=== PATIENT | female | born 1960 | race African-American/Black ===

== ENCOUNTER 2017-02-14 10:59 | Inpatient (IN) | payer OTHER ==
[2017-02-14] VITALS (8 sets, daily range): BP systolic 111–134; BP diastolic 60–76
[~2017-02-14] VITALS: Ht 154.9 cm; Wt 69.4 kg
--- NOTE | ~2017-02-14 | P ---
[facility] [place] [address] PROCEDURE REPORT Name: CONNIE DOWLING Room #: 212-P [facility] IN M.R.#: [id number] Admission: 02/14/17 Attend Phys: Yary Rodriguez Discharge: 02/23/17 Date of : 64 Report #: [id number] THIS REPORT FOR: //name// CC: LAILA Rodriguez DATE OF SERVICE: 02/22/2017 PROCEDURE PERFORMED: Upper endoscopy with small bowel enteroscopy and bleeding control. HISTORY OF PRESENT ILLNESS: The patient is a 56-year-old female who was admitted on 02/14/2017 with a significant anemia with hemoglobin of 5.6. She has been transfused. She underwent an EGD and colonoscopy by my partner, Dr. Baron. Distal esophagitis with Schatzki's ring was noted. Erosive antritis was noted. Duodenum otherwise normal. Colonoscopy was performed, which was normal. She then underwent an M2 capsule endoscopy yesterday. This was read this morning. There was evidence of several AVMs and active oozing in one portion what appeared to be within the distal duodenum or jejunum. Therefore, plan is for enteroscopy. DESCRIPTION OF PROCEDURE: The risks and benefits of the procedure were explained to the patient, those risks including but not limited to bleeding, perforation, the risk of sedation. She understood these risks and gave informed consent. Sedation was given using propofol and ketamine per anesthesia. Next, using a [employer] small bowel enteroscope, the scope was placed in the patient's mouth and advanced under direct vision through the esophagus, stomach, duodenum and well into the jejunum. I advanced the scope as far as possible. At one point, it was approximately 190-200 cm. A total of three nonbleeding AVMs were noted. All 3 were cauterized with a bipolar cautery. No bleeding was noted after cauterization. I was not able to advance the scope any further again at approximately 200 cm. At this point, the scope was slowly withdrawn. No further AVMs were noted. No bleeding. The gastric mucosa did show some mild gastritis, no bleeding. The esophagus was essentially normal. The scope was then withdrawn and the procedure terminated. The patient tolerated the procedure well. IMPRESSION: 1. 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 2. Mild gastritis. RECOMMENDATIONS: Overall difficult case as capsule from yesterday recording showed active oozing within the jejunum. There was no active bleeding today. It is unclear if all AVMs were able to be reached on enteroscopy today. There [address] [address] PROCEDURE REPORT Name: CONNIE DOWLING Room #: 212-P [facility] IN M.R.#: [id number] Admission: 02/14/17 Attend Phys: Yary Rordiguez Discharge: 02/23/17 Date of : 64 Report #: [id number] is a chance she could have further AVMs distally and if so, may need a double balloon enteroscopy, which is done at a different facility. Her hemoglobin is currently stable. Would recommend continuing to monitor hemoglobin. If there is a trend down, may need to consider double balloon enteroscopy at that point. The patient is also in need of a coronary artery bypass surgery in the near future as well. Thank you for allowing me to participate in her care. <ELECTRONICALLY SIGNED> By: Zaheer Grijalva MD 02/25/17 0818 1425 1705 Zaheer Grijalva MD /nt
--- NOTE | ~2017-02-14 | P ---
[facility] [place] [address] [place] [address] PROCEDURE REPORT Name: CONNIE DOWLING Room #: 356-P ADM IN M.R.#: [id number] Admission: 02/14/17 Attend Phys: Yary Rodriguez Discharge: Date of : 64 Report #: [id number] THIS REPORT FOR: //name// CC: TI Peters DO Yary Rodriguez MD DATE OF SERVICE: 02/16/2017 PROCEDURE: EGD with biopsies. A patient of Dr. Rodriguez and Dr. Ti Peters. INDICATION FOR PROCEDURE: The patient has heme negative stools, but is iron deficient and dropped her hemoglobin down to a very low level of 5.6. She has been transfused up to 9.0 now. The etiology of this iron deficiency anemia is unclear. So EGD and colonoscopy are being performed. Informed consent for this procedure was obtained prior to the administration of any medication. The risks of the procedure which include bleeding, perforation, infection, complications of sedation and the possibility I could miss something have been explained to the patient and she has indicated her consent by signing. DESCRIPTION OF PROCEDURE: Propofol was slowly titrated before and during this procedure for patient comfort by the anesthesia service. The [employer] upper videoscope was introduced through the upper esophageal sphincter and advanced under direct visualization to the descending duodenum. Findings are noted on withdrawal of the scope. The duodenal mucosa appears normal throughout its entirety. Pylorus, normal mucosa. Antrum, erosive antritis is noted. It should be also noted that the mucosa is atrophic in appearance. Biopsies were obtained x 2 from the antrum for Helicobacter pylori evaluation and for evaluation of other causes of erosive gastritis. Body, nodular mucosa is noted. There is also atrophic gastric mucosa appearance to the lining of the stomach. Cardia and fundus, normal mucosa. Retroflex view did not reveal any hiatal hernia. The scope was withdrawn into the esophagus. The Z-line is appropriately located at the top of the gastric folds. There is erythema of the distal esophagus. A biopsy was obtained x 1 for histopathology. The remainder of the esophageal mucosa appears normal. The scope was withdrawn. She was turned for colonoscopy. IMPRESSION: 1. Distal esophagitis with a Schatzki ring that has not been causing any symptoms. I did not dilate it. 2. Erosive antritis, biopsies pending. 3. Atrophic nodular appearing body of the stomach, possible H. pylori [address] [address] PROCEDURE REPORT Name: CONNIE DOWLING Room #: 356-P [facility] IN M.R.#: [id number] Admission: 02/14/17 Attend Phys: Yary Rodriguez Discharge: Date of : 64 Report #: [id number] infection. Biopsies obtained to exclude this. 4. Normal duodenum. RECOMMENDATIONS: Are to await the biopsy results and we will proceed with colonoscopy at this time. Thank you very much once again for allowing me to participate in her care. <ELECTRONICALLY SIGNED> By: Ann-Marie Baron DO 02/17/17 2245 1302 2301 Ann-Marie Baron, /nt
--- NOTE | ~2017-02-14 | EKG ---
[address] [place] [address] ELECTROCARDIOGRAM REPORT Name: CONNIE DOWLING Room #: 356-P ADM IN M.R.#: [id number] Admission: 02/14/17 Attend Phys: Yary Rodriguez Discharge: Date of : 64 Report #: [id number] THIS REPORT FOR: //name// [facility] ED Test Date: 2017-02-14 Test Time: 11:17:57 Pat Name: CONNIE DOWLING Department: Room: 356 Gender: F Social Media Project Manager: MAURA : 1960 Requested By: Renny Kinney Order Number: [id number] MD: Terence Caldwell Measurements Intervals [place] Rate: 93 P: 66 WA: 169 QRS: 52 QRSD: 90 T: -16 QT: 356 QTc: 443 Interpretive Statements Sinus rhythm Ventricular premature complex Probable left atrial enlargement Nonspecific repol abnormality, diffuse leads Compared to ECG 09/01/2011 20:07:41 Ventricular premature complex(es) now present Early repolarization now present Sinus tachycardia no longer present Electronically Signed On 02-14-2017 17:02:14 [employer] WORK[employer] by Terence Caldwell [email or web address] <ELECTRONICALLY SIGNED> By: Terence Caldwell MD 02/14/17 1702 1117 1117 Terence Caldwell MD /EPI
--- NOTE | ~2017-02-14 | CATHLAB ---
[facility] [address] [place] [address] INVASIVE PROCEDURE REPORT Name: CONNIE DOWLING Room #: 212-P ADM IN M.R.#: [id number] Admission: 02/14/17 Attend Phys: Yary Holbrook Discharge: Date of : 64 Date of Service: 02/18/17 1310 Report #: [id number] THIS REPORT FOR: //name// APPROVED REPORT Patient Details Patient Status: In-Patient Room #: The patient is a 56 year-old female Event Personnel Syd Reyez Revolving Field Assembler, Torrey Mccann RN, Chi Srinivasan, Liu Lopez RN Monitor Procedures Performed Left Heart Cath w/or w/o Coronaries [id number] [facility] Indication CHF Current Status: , Non-STEMI , Dyspnea Risk Factors Hypercholesterolemia, Hypertension Procedure Narrative The Right Groin^ was infiltrated with 1% Lidocaine subcutaneous anesthesia. A PINNACLE 5FR Sheath #[id number] sheath was inserted into the RFA^. Coronary angiography was performed using coronary diagnostic catheters. The right coronary system was accessed and visualized with a JR4 catheter. The left coronary system was accessed and visualized with a JL4 catheter. The left ventricle was accessed and visualized with a PIGTAIL catheter. Left ventricular/Aortic Valve gradient assessed via catheter pullback. Closure device was deployed with a 5 Fr MYNXGRIP 5F #[id number]. The patient tolerated the procedure well and there were no complications associated with the procedure. Intraoperative Conscious Sedation Sedation start time: 8.15 Case end Time: 8.34 Fentanyl 25.0 mcg Versed 1.5 mg Fluoro Time: 2.17 minutes Dose: DAP 3619.80 cGycm2 501 mGy Contrast Type and Amount: Omnipaque 120 ml Coronary Angiography The patient's coronary anatomy is co- dominant. [facility] [address] [place] [place] [address] INVASIVE PROCEDURE REPORT Name: CONNIE DOWLING Room #: 212-P [facility] IN M.R.#: [id number] Admission: 02/14/17 Attend Phys: Yary Holbrook Discharge: Date of : 64 Date of Service: 02/18/17 1310 Report #: [id number] Diagnostic Cath Left Main Large-caliber vessel, with mild disease at the distal segment. LAD Heavily calcified in the proximal segment. There is a severe stenosis in the mid segment, 80%. Diagonal 1 Small-caliber vessel, mild disease proximally. Circumflex Codominant vessel with a severe stenosis in the proximal segment, at least 90%. OM1 Severe stenosis, 70% in the proximal segment. OM2 Severe stenosis, 70% in the proximal segment. Right Coronary Severe stenosis in the mid segment, 80%. R PDA Small-caliber vessel, no flow limiting lesions. Left Ventriculography The left ventricle is mildly dilated in size with decreased contractility. The left ventricular ejection fraction is estimated to be 35%. Hypokinesis of the anteroapical region. Hemodynamics The aortic pressure is 161/86 mmHg with a mean of 80 mmHg. The left ventricular pressure is 148/22 mmHg with a mean of mmHg. The left ventricular end diastolic pressure is 35 mmHg. Conclusion 1. Severe, multivessel coronary artery disease. 2. Moderately severe ischemic cardiomyopathy. 3. Recommend CV consultation. <ELECTRONICALLY SIGNED> By: Syd Reyez MD 02/18/171309 09 09 Syd Reyez MD /INF
--- NOTE | ~2017-02-14 | 2DMMODE ---
[facility] [address] [place] [address] 2 D/M-MODE ECHOCARDIOGRAM Name: CONNIE DOWLING Room #: 356-P ADM IN M.R.#: [id number] Admission: 02/14/17 Attend Phys: Yary Holbrook Discharge: Date of : 64 Date of Service: 02/15/17 0934 Report #: [id number] THIS REPORT FOR: //name// APPROVED REPORT Study performed: 02/15/2017 08:08:59 EXAM: Comprehensive 2D, Doppler, and color-flow Echocardiogram Patient Location: Bedside Room #: 356 Status: routine BSA: 1.70 HR: 86 bpm BP: 124/82 mmHg Rhythm: NSR Other Information Study Quality: Good Indications Dyspnea Elevated Troponin ST Depression 2D Dimensions RVDd: 32.24 mm LVEF(%): 33.04 (>50%) IVSd: 10.94 (7-11mm) LVOT Diam: 21.13 (18-24mm) LVDd: 45.73 mm PWd: 10.94 (7-11mm) Ascending Ao: 28.54 (22-36mm) LVDs: 38.59 (25-40mm) Aortic Root: 27.55 mm IVC: 24.00 mm Gutierrez's LVEF: 33.04 % Volumes Left Atrial Volume (Systole) Single Plane 4CH: 67.33 mL Single Plane 2CH: 89.24 mL LA ESV Index: 50.00 mL/m2 Aortic Valve AoV Peak Zaid.: 1.08 m/s AO Peak Gr.: 4.66 mmHg LVOT Max P.88 mmHg LVOT Max V: 0.85 m/s NANDO Vmax: 2.76 cm2 Mitral Valve [facility] [address] [place] [address] 2 D/M-MODE ECHOCARDIOGRAM Name: CONNIE DOWLING Room #: 356-P [facility] IN M.R.#: [id number] Admission: 02/14/17 Attend Phys: Yary Holbrook Discharge: Date of : 64 Date of Service: 02/15/17 0934 Report #: [id number] E/A Ratio: 1.3 MV Decel. Time: 133.99 ms MV E Max Zaid.: 1.36 m/s MV A Zaid.: 1.05 m/s MV PHT: 38.86 ms IVRT: 55.36 ms Pulmonary Valve PV Peak Zaid.: 1.08 m/s PV Peak Gr.: 4.67 mmHg AK End Vmax: 2.17 m/s Pulmonary Vein P Vein S: 0.35 m/s P Vein A: 0.29 m/s P Vein D: 0.53 m/s P Vein A Dur.: 86.5 msec P Vein S/D Ratio: 0.66 Tricuspid Valve TR Peak Zaid.: 3.07 m/s RAP Estimate: 15.00 mmHg TR Peak Gr.: 37.71 mmHg PA Pressure: 53.00 mmHg Left Ventricle The left ventricle is normal size. Hypokinesis of the septum and anterior michel. There is normal left ventricular wall thickness. Left ventricular systolic function is moderately decreased. LVEF is 35-40%. The diastolic function is abnormal. Findings suggest the left atrial pressure is elevated. Right Ventricle The right ventricle is normal size. The right ventricular systolic function is normal. Atria Left atrium is dilated. Right atrium is dilated. Aortic Valve The aortic valve is normal in structure. No aortic regurgitation is present. There is no aortic valvular stenosis. Mitral Valve Mild mitral annular calcification. Moderate mitral regurgitation. No evidence of mitral valve stenosis. Tricuspid Valve The tricuspid valve is normal in structure. Mild to moderate tricuspid regurgitation. Estimated PAP 50mmHg. [facility] [address] [place] [address] 2 D/M-MODE ECHOCARDIOGRAM Name: CONNIE DOWLING Room #: 356-P [facility] IN M.R.#: [id number] Admission: 02/14/17 Attend Phys: Yary Holbrook Discharge: Date of : 64 Date of Service: 02/15/17 0934 Report #: [id number] Pulmonic Valve The pulmonary valve is normal in structure. Mild pulmonic regurgitation. Great Vessels The aortic root is normal in size. The ascending aorta is normal in size. IVC is dilated and collapses <50% with inspiration. Pericardium There is no pericardial effusion. <Conclusion> Moderate left ventricular dysfunction. LVEF is 35-40%. Hypokinesis of the septum and anterior michel. Both atria are mildly dilated. The aortic valve is normal in structure. No aortic valvular stenosis or insufficiency. Mild mitral annular calcification. Moderate mitral regurgitation. Pulmonary artery pressure of 50mmHg There is no pericardial effusion. <ELECTRONICALLY SIGNED> By: Isra Roberts MD, [facility] 02/15/17933 3 3 Isra Roberts MD, FACC /INF
--- NOTE | ~2017-02-14 | S ---
[facility] [place] [address] [place] [address] SURGICAL PATH RPT PROCEDURE Name: CONNIE DOWLING Room #: 356-P ADM IN M.R.#: [id number] Admission: 02/14/17 Date of : 64 Discharge: Report #: [id number] Path Case #: [id number] PATHOLOGY REPORT COLLECTION DATE: 02/16/2017 RECEIVED DATE: 02/16/2017 SUBMITTING PHYS: Dr. Ann-Marie Baron OTHER PHYS: Dr. Yary Rodriguez SPECIMEN(S) RECEIVED: A.Bx antrum stomach R/O H pylori B.Bx esophagus to evaluate esophagitis * * * * * * * * * * * * FINAL DIAGNOSIS: A. Gastric mucosa, antrum stomach rule out H. pylori, endoscopic biopsy: - Mild chronic active gastritis. - Negative for intestinal metaplasia or atrophy. - Negative for Helicobacter pylori. B. Squamous mucosa, esophagitis, endoscopic biopsy: - Mild esophagitis showing changes compatible with reflux esophagitis. - Negative for intestinal metaplasia or dysplasia. COMMENT: Helicobacter pylori immunohistochemical stain performed on block A1 - negative. (IUV:pit; 02/17/2017) PATHOLOGIST: Maria Vazquez M.D. REPORT ELECTRONICALLY SIGNED BY: Maria Vazquez M.D. DATE/TIME: 02/17/2017 15:16 * * * * * * * * * * * * GROSS PATHOLOGY: A. Received in formalin labeled "Connie Dowling, BX antrum stomach," are 2 segments of martin soft tissue measuring 1.2 x 0.4 x 0.3 cm in aggregate dimensions and ranging from 0.5 to 0.6 cm in maximum dimension. The specimen is submitted entirely in cassette A1. B. Received in formalin labeled "Connie Dowling, BX esophagitis," and additionally labeled on the requisition as "esophagus to evaluate esophagitis," is a segment of martin soft tissue measuring 0.5 cm in maximum dimension. The specimen is submitted entirely in cassette B1. (TSD; 02/16/2017) [address] [address] SURGICAL PATH RPT PROCEDURE Name: OCNNIE DOWLING Room #: 356-P ADM IN M.R.#: [id number] Admission: 02/14/17 Date of : 64 Discharge: Report #: [id number] Path Case #: [id number] CLINICAL HISTORY: Pre-OP DX: Anemia, GI bleed Post-OP DX: Diffuse nodular gastritis, esophagitis INITIAL CPT CODE(S): A; 41034, 46315 B; 93166 Professional services performed by [facility] at [address], [place] [address] Technical services performed by [facility] at [address] [place] [address], [address], [place] [address]. Ti Peters [facility] [address] [address] PHONE: [phone] DIRECTOR: Chai Gatica M.D. * * * END OF REPORT * * *
--- NOTE | ~2017-02-14 | P ---
[facility] [place] [address] [place] [address] PROCEDURE REPORT Name: CONNIE DOWLING Room #: 356-P [facility] IN M.R.#: [id number] Admission: 02/14/17 Attend Phys: Yary Rodriguez Discharge: Date of : 64 Report #: [id number] THIS REPORT FOR: //name// CC: LAILA Gtz MD DATE OF SERVICE: 02/16/2017 PROCEDURE: This is a diagnostic colonoscopy. Informed consent for this procedure was obtained prior to the administration of any medication. The risks of the procedure which include bleeding, perforation, infection, complications of sedation and the possibility I could miss something have been explained to the patient and she has indicated her consent by signing. DESCRIPTION OF PROCEDURE: Propofol was slowly titrated before and during this procedure and the EGD that preceded it. The CVRxn colonoscope was introduced through the anal sphincter and advanced under direct visualization to the terminal ileum. Findings are noted on withdrawal of the scope. The terminal ileal mucosa appears normal. Cecum, normal mucosa. Ascending colon, normal mucosa. Hepatic flexure, normal mucosa. Transverse colon, normal mucosa. Splenic flexure, normal mucosa. Descending colon, normal mucosa. Sigmoid colon, normal mucosa. Rectum, normal mucosa. Retroflex view did not reveal any abnormalities. The scope was withdrawn. The patient went to the recovery area in stable condition. She tolerated the procedure well. IMPRESSION: Normal colonoscopic exam to the terminal ileum. The etiology of the patient's iron deficiency anemia may be from the erosive antritis. I think she has been taking some nonsteroidals. She would benefit from ongoing H2 receptor antagonist therapy if she is going to continue taking these medications. If she has a heme-positive stool, I would recommend that she have an M2 capsule study done to be certain there is not something in her small intestine that might be causing her iron deficiency anemia. Thank you very much once again for allowing me to participate in her care, Dr. Rodriguez and Dr. Peters. <ELECTRONICALLY SIGNED> By: Ann-Marie Baron DO 02/17/17 2245 1302 0411 Ann-Marie Baron DO /nt
[~2017-02-14 10:59] MED LIST: AUGMENTIN 875875 MG PO; BACTRIM DS TAB1 EACH PO; CIPROFLOXA400 MG/202 IVPB; HYDROCODON-ACE1 EAC7 PO; IBUPROFEN 400400 M1 PO; NOHOMEMEDICATIONS; SOF-LAX100 MG PO; VICODIN 5-5001 EACH PO
[2017-02-14 11:32] LABS: MCH 23.3 pg (26.0-34.0); MCHC 33.2 g/dL (28.0-37.0); MCV 70.3 fL (80.0-100.0); PLATELET COUNT 451 thou/uL (150-400); RBC 2.41 mil/uL (4.20-5.00); RDW 19.3 % (10.5-14.5); WBC 8.9 thou/uL (4.0-11.0)
[2017-02-14 11:33] LABS: MANUAL DIFF YES
[2017-02-14 11:35] LABS: HEMATOCRIT 16.9 % (37.0-47.0); HEMOGLOBIN 5.6 gm/dL (12.0-15.0)
[2017-02-14 11:37] LABS: CALCIUM 9.4 mg/dL (8.5-10.1); CREATININE 0.9 mg/dL (0.6-1.0); POTASSIUM 4.3 mmol/L (3.5-5.1)
[2017-02-14 11:46] LABS: TOTAL BILIRUBIN 0.6 mg/dL (<0.1-1.0); TOTAL PROTEIN 7.9 g/dL (6.4-8.2); TROPONIN-I 0.08 ng/mL (<0.06)
[2017-02-14 12:39] LABS: ABSOLUTE NEUTROPHILS 7.8 thou/uL (1.4-8.2); ANISOCYTOSIS 1+; HYPOCHROMASIA 2+; MICROCYTES 2+; PLATELET ESTIMATE INCREASED; TOTAL CELL COUNT 100
[2017-02-14 12:40] LABS: % SATURATION 3 % (20-39); IRON 15 ug/dL (50-170); TIBC 430 ug/dL (250-450); UIBC 415 ug/dL
[2017-02-14 12:50] LABS: ABSOLUTE RETIC COUNT 0.0753 10^6/uL; OBSERVED RETIC COUNT 3.12 % (0.6-2.6)
[2017-02-14 12:52] LABS: CHOLESTEROL 123 mg/dL (<200); HDL CHOLESTEROL 58 mg/dL (>40); LDL CHOLESTEROL 57 mg/dL (<100); TC:HDL 2.1 Ratio (Not establshd); TRIGLYCERIDE 43 mg/dL (<150); VLDL 9 mg/dL (<40)
[2017-02-15] VITALS (11 sets, daily range): BP systolic 104–142; BP diastolic 58–93
[2017-02-15 05:03] LABS: MCV 72.3 fL (80.0-100.0); WBC 7.7 thou/uL (4.0-11.0)
[2017-02-15 05:04] LABS: MCH 22.9 pg (26.0-34.0); MCHC 31.7 g/dL (28.0-37.0); RBC 2.56 mil/uL (4.20-5.00); RDW 20.1 % (10.5-14.5)
[2017-02-15 05:10] LABS: HEMOGLOBIN 5.9 gm/dL (12.0-15.0)
[2017-02-15 05:11] LABS: HEMATOCRIT 18.5 % (37.0-47.0)
[2017-02-15 05:18] LABS: ALBUMIN 2.6 g/dL (3.4-5.0); CALCIUM 8.5 mg/dL (8.5-10.1); CREATININE 0.8 mg/dL (0.6-1.0); POTASSIUM 3.9 mmol/L (3.5-5.1); TROPONIN-I 0.13 ng/mL (<0.06)
[2017-02-15 22:14] LABS: HEMATOCRIT 26.1 % (37.0-47.0); HEMOGLOBIN 8.4 gm/dL (12.0-15.0)
[2017-02-16 03:58] VITALS: BP 112/69
[2017-02-16 06:50] LABS: HEMATOCRIT 27.9 % (37.0-47.0); MCH 23.7 pg (26.0-34.0); MCHC 32.3 g/dL (28.0-37.0); MCV 73.6 fL (80.0-100.0); RBC 3.79 mil/uL (4.20-5.00); RDW 20.4 % (10.5-14.5); WBC 9.8 thou/uL (4.0-11.0)
[2017-02-16 07:00] LABS: ALBUMIN 2.9 g/dL (3.4-5.0); CALCIUM 9.3 mg/dL (8.5-10.1); CREATININE 0.7 mg/dL (0.6-1.0); PHOSPHORUS 3.6 mg/dL (2.5-4.9); POTASSIUM 3.6 mmol/L (3.5-5.1)
[2017-02-16 08:14] VITALS: BP 126/68
[2017-02-16 13:45] VITALS: BP 115/71
[2017-02-16 14:09] LABS: GLYCOHEMOGLOBIN (HGB A1C) 5.1 % (4.8-5.6)
[2017-02-16 19:49] VITALS: BP 110/55
[2017-02-17 04:06] VITALS: BP 125/62
[2017-02-17 05:57] LABS: HEMATOCRIT 30.4 % (37.0-47.0); HEMOGLOBIN 9.8 gm/dL (12.0-15.0); MCH 24.1 pg (26.0-34.0); MCHC 32.2 g/dL (28.0-37.0); MCV 74.8 fL (80.0-100.0); RBC 4.06 mil/uL (4.20-5.00); RDW 20.8 % (10.5-14.5); WBC 8.7 thou/uL (4.0-11.0)
[2017-02-17 06:04] LABS: ALBUMIN 2.8 g/dL (3.4-5.0); CALCIUM 8.6 mg/dL (8.5-10.1); CREATININE 0.9 mg/dL (0.6-1.0); PHOSPHORUS 3.9 mg/dL (2.5-4.9); POTASSIUM 3.1 mmol/L (3.5-5.1)
[2017-02-17 07:29] VITALS: BP 133/69
[2017-02-17 11:35] VITALS: BP 106/58
[2017-02-17 15:25] VITALS: BP 129/48
[2017-02-17 16:30] LABS: MAGNESIUM 1.4 mg/dL (1.8-2.4); POTASSIUM 4.2 mmol/L (3.5-5.1)
[2017-02-17 18:50] VITALS: BP 127/69
[2017-02-18] VITALS (9 sets, daily range): BP systolic 121–134; BP diastolic 65–79
[2017-02-18 06:45] LABS: HEMATOCRIT 30.1 % (37.0-47.0); HEMOGLOBIN 9.6 gm/dL (12.0-15.0); MCH 24.1 pg (26.0-34.0); MCV 75.3 fL (80.0-100.0); RBC 3.99 mil/uL (4.20-5.00); RDW 21.9 % (10.5-14.5); WBC 8.6 thou/uL (4.0-11.0)
[2017-02-18 06:57] LABS: CALCIUM 9.2 mg/dL (8.5-10.1); CREATININE 0.8 mg/dL (0.6-1.0); MAGNESIUM 1.5 mg/dL (1.8-2.4); POTASSIUM 3.6 mmol/L (3.5-5.1)
[2017-02-18 15:01] LABS: URINE BILIRUBIN NEGATIVE (Negative); URINE BLOOD 1+ (Negative); URINE COLOR YELLOW; URINE GLUCOSE-RANDOM* NEGATIVE (Negative); URINE KETONES NEGATIVE (Negative); URINE PROTEIN (DIPSTICK) NEGATIVE (Negative); URINE SPECIFIC GRAVITY <= 1.005 (1.003-1.035); URINE UROBILINOGEN 0.2 E.U./dl (0.2-1.0)
[2017-02-18 15:02] LABS: URINE LEUKOCYTES-REFLEX 1+ (Negative)
[2017-02-18 15:14] LABS: SQUAMOUS 0-3 Few /LPF (0-3); URINE RBC 0-2 Rare /HPF (0-2); URINE WBC-REFLEX 0-5 Rare /HPF (0-5)
[2017-02-18 15:15] LABS: CASTS None Seen /LPF (None Seen); CRYSTALS None Seen /LPF (None Seen)
[2017-02-19 04:56] LABS: MCH 23.6 pg (26.0-34.0); MCHC 31.4 g/dL (28.0-37.0); MCV 75.4 fL (80.0-100.0); RBC 4.24 mil/uL (4.20-5.00); WBC 9.2 thou/uL (4.0-11.0)
[2017-02-19 05:07] LABS: CREATININE 0.9 mg/dL (0.6-1.0); MAGNESIUM 1.8 mg/dL (1.8-2.4); POTASSIUM 3.3 mmol/L (3.5-5.1)
[2017-02-19 05:08] VITALS: BP 141/71
[2017-02-19 08:00] VITALS: BP 125/82
[2017-02-19 12:00] VITALS: BP 115/70
[2017-02-19 16:00] VITALS: BP 137/74
[2017-02-19 19:52] VITALS: BP 132/83
[2017-02-20 02:07] LABS: HEMATOCRIT 31.8 % (37.0-47.0); HEMOGLOBIN 10.1 gm/dL (12.0-15.0); MCH 23.7 pg (26.0-34.0); MCHC 31.6 g/dL (28.0-37.0); MCV 75.1 fL (80.0-100.0); RBC 4.24 mil/uL (4.20-5.00); RDW 23.7 % (10.5-14.5)
[2017-02-20 02:19] LABS: CALCIUM 8.7 mg/dL (8.5-10.1); CREATININE 0.7 mg/dL (0.6-1.0); MAGNESIUM 1.7 mg/dL (1.8-2.4); POTASSIUM 3.3 mmol/L (3.5-5.1)
[2017-02-20 04:19] VITALS: BP 122/77
[2017-02-20 09:20] VITALS: BP 105/71
[2017-02-20 12:55] VITALS: BP 112/69
[2017-02-20 16:30] VITALS: BP 123/75
[2017-02-20 17:07] LABS: MAGNESIUM 1.8 mg/dL (1.8-2.4)
[2017-02-20 17:10] LABS: POTASSIUM 4.5 mmol/L (3.5-5.1)
[2017-02-20 19:47] VITALS: BP 136/76
[2017-02-21 03:37] VITALS: BP 115/69
[2017-02-21 04:12] LABS: HEMATOCRIT 32.1 % (37.0-47.0); HEMOGLOBIN 10.2 gm/dL (12.0-15.0); MCH 24.1 pg (26.0-34.0); MCHC 31.7 g/dL (28.0-37.0); MCV 76.1 fL (80.0-100.0); RBC 4.22 mil/uL (4.20-5.00); RDW 24.5 % (10.5-14.5); WBC 10.2 thou/uL (4.0-11.0)
[2017-02-21 04:16] LABS: CALCIUM 9.1 mg/dL (8.5-10.1); CREATININE 0.9 mg/dL (0.6-1.0); MAGNESIUM 1.8 mg/dL (1.8-2.4); POTASSIUM 3.7 mmol/L (3.5-5.1)
[2017-02-21 07:07] LABS: URINE BILIRUBIN NEGATIVE (Negative); URINE BLOOD 3+ (Negative); URINE COLOR YELLOW; URINE GLUCOSE-RANDOM* NEGATIVE (Negative); URINE KETONES NEGATIVE (Negative); URINE LEUKOCYTES-REFLEX 3+ (Negative); URINE PROTEIN (DIPSTICK) 2+ (Negative); URINE SPECIFIC GRAVITY <= 1.005 (1.005-1.035)
[2017-02-21 07:36] LABS: SQUAMOUS >10 Many /LPF (0-3)
[2017-02-21 07:37] LABS: CASTS None Seen /LPF (None Seen); CRYSTALS None Seen /LPF (None Seen); URINE WBC-REFLEX >25 Many /HPF (0-5)
[2017-02-21 07:38] LABS: URINE RBC 3-10 Few /HPF (0-2)
[2017-02-21 11:40] VITALS: BP 94/63
[2017-02-21 15:42] VITALS: BP 106/69
[2017-02-21 19:58] VITALS: BP 94/60
[2017-02-22 03:26] VITALS: BP 122/75
[2017-02-22 07:52] VITALS: BP 115/81
[2017-02-22 11:02] LABS: HEMATOCRIT 31.8 % (37.0-47.0); HEMOGLOBIN 10.1 gm/dL (12.0-15.0)
[2017-02-22 19:33] VITALS: BP 99/63
[2017-02-23 03:56] LABS: CALCIUM 8.9 mg/dL (8.5-10.1); CREATININE 0.8 mg/dL (0.6-1.0); POTASSIUM 3.6 mmol/L (3.5-5.1)
[2017-02-23 03:57] VITALS: BP 119/75
[2017-02-23 04:06] LABS: HEMATOCRIT 29.7 % (37.0-47.0); HEMOGLOBIN 9.5 gm/dL (12.0-15.0); MCH 24.5 pg (26.0-34.0); MCV 76.6 fL (80.0-100.0); RBC 3.87 mil/uL (4.20-5.00); RDW 24.5 % (10.5-14.5); WBC 9.8 thou/uL (4.0-11.0)
[2017-02-23 07:18] VITALS: BP 117/67
[2017-02-23 11:34] VITALS: BP 102/61
[2017-02-23] MEDS ORDERED: LIPITOR 20 MG T20 M1 PO (15:29)
[2017-02-23] MEDS ORDERED: NITROGLYCERIN0.4 MG SUBLING (15:30)
[2017-02-23] MEDS ORDERED: CARVEDILOL3.125 MG PO (15:32)
[2017-02-23] MEDS ORDERED: ASPIR 8181 MG PO (15:32)
[2017-02-23] MEDS ORDERED: COZAAR 25 MG TA25 M1 PO (15:32)
[2017-02-23 15:41] VITALS: BP 102/61
== END 2017-02-23 16:26 | disposition home or self-care (01) | DRG 281 ==
LOC: ER 10:59 → 3W 12:22 → EROBS 12:22 → 3W 12:29 → 2N 02-18 09:36
PROVIDERS: Hospitalist; Internal Medicine; Nurse Practitioner; Nurse Practitioner Acute Care; Physician Assistant
PROC: 30233N1 Transfusion of Nonautologous Red Blood Cells into Peripheral Vein, Percutaneous Approach (ICD-10-PCS; 2017-02-14)
PROC: 0DB78ZX Excision of Stomach, Pylorus, Via Natural or Artificial Opening Endoscopic, Diagnostic (ICD-10-PCS; principal; 2017-02-16)
PROC: 0DJD8ZZ Inspection of Lower Intestinal Tract, Via Natural or Artificial Opening Endoscopic (ICD-10-PCS; 2017-02-16)
PROC: 4A023N7 Measurement of Cardiac Sampling and Pressure, Left Heart, Percutaneous Approach (ICD-10-PCS; 2017-02-18)
PROC: B2111ZZ Fluoroscopy of Multiple Coronary Arteries using Low Osmolar Contrast (ICD-10-PCS; 2017-02-18)
PROC: B2151ZZ Fluoroscopy of Left Heart using Low Osmolar Contrast (ICD-10-PCS; 2017-02-18)
PROC: 0W3P8ZZ Control Bleeding in Gastrointestinal Tract, Via Natural or Artificial Opening Endoscopic (ICD-10-PCS; 2017-02-22)
DX: I21.4 Non-ST elevation (NSTEMI) myocardial infarction (principal); K92.2 Gastrointestinal hemorrhage, unspecified; D62 Acute posthemorrhagic anemia; I74.2 Embolism and thrombosis of arteries of the upper extremities; F17.210 Nicotine dependence, cigarettes, uncomplicated; D64.9 Anemia, unspecified; I50.9 Heart failure, unspecified; K20.9 Esophagitis, unspecified; J32.0 Chronic maxillary sinusitis; D50.9 Iron deficiency anemia, unspecified; K29.70 Gastritis, unspecified, without bleeding; K55.20 Angiodysplasia of colon without hemorrhage; F10.10 Alcohol abuse, uncomplicated; Y90.9 Presence of alcohol in blood, level not specified; I25.5 Ischemic cardiomyopathy; E87.6 Hypokalemia; I34.0 Nonrheumatic mitral (valve) insufficiency; I27.20 Pulmonary hypertension, unspecified; I25.10 Atherosclerotic heart disease of native coronary artery without angina pectoris; E66.9 Obesity, unspecified; Z68.28 Body mass index [BMI] 28.0-28.9, adult; Z88.8 Allergy status to other drugs, medicaments and biological substances; Z98.51 Tubal ligation status; Z87.11 Personal history of peptic ulcer disease; Z90.49 Acquired absence of other specified parts of digestive tract
CPT/HCPCS: 10081; 10779; 62110; 62900; 70005